=== PATIENT | female | born 1955 | race Caucasian/White ===

== ENCOUNTER 2024-06-30 14:55 | Outpatient (CLI) | payer MEDICARE | END 2024-06-30 14:56 | disposition home or self-care (01) | LOC: CSHULT 14:55 | PROVIDERS: ATTEND Physician Assistant | DX: D3A.8 Other benign neuroendocrine tumors (principal); R60.1 Generalized edema; I51.9 Heart disease, unspecified; I34.0 Nonrheumatic mitral (valve) insufficiency | CPT/HCPCS: 93306 ==